=== PATIENT | male | born 1950 | race Caucasian/White ===

== ENCOUNTER 2024-05-27 15:10 | Inpatient (IN) | payer OTHER ==
[~2024-05-27] VITALS: Ht 177.8 cm; Wt 108.0 kg
[2024-05-27 15:55] LABS: BASOPHILS % (AUTO) 0.6 % (0.0-2.0); EOSINOPHILS % (AUTO) 2.4 % (1.0-6.0); HEMATOCRIT 46.1 % (41-53); HEMOGLOBIN 15.3 g/dL (13.5-17.5); LYMPHOCYTES # (AUTO) 1.3 K/uL (1.0-4.8); LYMPHOCYTES % (AUTO) 24.5 % (22.0-44.0); MEAN CORPUSCULAR HEMOGLOBIN 31.7 pg (26.0-34.0); MEAN CORPUSCULAR HGB CONC 33.3 G/dL (31.0-37.0); MEAN CORPUSCULAR VOLUME 95 fL (80-100); MONOCYTES # (AUTO) 0.5 K/uL (0.1-1.0); MONOCYTES % (AUTO) 9.9 % (2.0-9.0); NEUTROPHILS # (AUTO) 3.4 K/uL (1.8-7.7); NEUTROPHILS % (AUTO) 62.6 % (40.0-70.0); PLATELET COUNT (AUTO) 286 K/uL (150-450); RED BLOOD CELL COUNT(AUTO) 4.84 MIL/uL (4.50-5.90); RED CELL DISTRIBUTION WIDTH 14.5 % (11.5-14.5); WHITE BLOOD COUNT (AUTO) 5.4 K/uL (4.5-11.0)
[2024-05-27 16:07] LABS: ANION GAP 9 mmol/L (8-16); CALCIUM, TOTAL 9.1 mg/dL (8.8-10.5); CARBON DIOXIDE 27 mmol/L (22-29); CHLORIDE 105 mmol/L (98-107); CREATININE 1.62 mg/dL (0.60-1.30); GLOMERULAR FILTR. RATE CALC 42 mL/min (>60); GLUCOSE,RANDOM 105 mg/dL (70-110); POTASSIUM 4.2 mmol/L (3.5-5.1); SODIUM SERUM 141 mmol/L (136-145); UREA NITROGEN, BLOOD 26 mg/dL (7-18)
[2024-05-27 16:14] LABS: B-TYPE NATRIURETIC PEPTIDE 43 pg/mL (0-100)
[2024-05-27 16:16] LABS: ALANINE AMINOTRANSFERASE 31 U/L (12-78); ALBUMIN 3.5 g/dL (3.4-5.0); ALKALINE PHOSPHATASE 115 U/L (46-116); ASPARTATE AMINOTRANSFERASE 30 U/L (15-37); BILIRUBIN,TOTAL 0.8 mg/dL (0.1-1.0); CREATINE KINASE, TOTAL ONLY 167 U/L (39-308); TOTAL PROTEIN, SERUM 7.2 g/dL (6.4-8.2); TROPONIN I-HIGH SENSITIVITY 11 ng/L (<76)
[2024-05-27] MEDS ORDERED: ALBUTEROL SULFATE 2.5 MG/0.5 ML NEB SOLUTION NEB PRN (16:30)
[2024-05-27] MEDS ORDERED: ZOLPIDEM TARTRATE 5 MG TABLET PO PRN (16:30)
[2024-05-27] MEDS ORDERED: ACETAMINOPHEN 325 MG TABLET PO PRN (16:30)
[2024-05-27] MEDS: AmLODIPine BESYLATE 5 MG TABLET PO SCH (16:40)
[2024-05-27 17:32] LABS: APPEARANCE,URINE CLEAR (CLEAR); BILIRUBIN,URINE NEGATIVE (NEGATIVE); COLOR,URINE LIGHT YELLOW (YELLOW); GLUCOSE, URINE (UA) NEGATIVE (NEGATIVE); KETONES,URINE NEGATIVE (NEGATIVE); LEUKOCYTE ESTERASE ,URINE NEGATIVE (NEGATIVE); NITRATE,URINE NEGATIVE (NEGATIVE); OCCULT BLOOD,URINE NEGATIVE (NEGATIVE); PROTEIN,URINE NEGATIVE (NEGATIVE); SPECIFIC GRAVITIY, URINE 1.018 (1.003-1.030); UROBILINOGEN,URINE <=1.0 mg/dL (<=1.0)
[2024-05-27] MEDS: DOCUSATE SODIUM 100 MG CAPSULE PO SCH (21:00)
[2024-05-27] MEDS: HEPARIN SODIUM,PORCINE 5,000 UNITS/ML VIAL SQ SCH (23:57)
[2024-05-28] MEDS: FAMOTIDINE 20 MG TABLET PO SCH (08:32)
[2024-05-28 14:08] VITALS: BP 109/90; PULSE 85; RESP 18; TEMP 98.4; O2SAT 96
[2024-05-28 20:00] VITALS: BP 132/72; PULSE 69; RESP 18; TEMP 98.2; O2SAT 97
[2024-05-28] MEDS: CARVEDILOL 6.25 MG TABLET PO SCH (21:23)
[2024-05-29] VITALS: BP 116/68; PULSE 62; RESP 18; TEMP 98.1; O2SAT 95
[2024-05-29 04:00] VITALS: BP 132/58; PULSE 64; RESP 18; TEMP 98; O2SAT 95
[2024-05-29 07:53] VITALS: BP 146/86; PULSE 60; RESP 18; TEMP 97.8; O2SAT 97
[2024-05-29 07:53] LABS: BASOPHILS % (AUTO) 0.7 % (0.0-2.0); HEMATOCRIT 44.8 % (41-53); LYMPHOCYTES # (AUTO) 1.7 K/uL (1.0-4.8); LYMPHOCYTES % (AUTO) 27.2 % (22.0-44.0); MEAN CORPUSCULAR HEMOGLOBIN 31.6 pg (26.0-34.0); MEAN CORPUSCULAR HGB CONC 33.4 G/dL (31.0-37.0); MEAN CORPUSCULAR VOLUME 95 fL (80-100); MONOCYTES # (AUTO) 0.7 K/uL (0.1-1.0); MONOCYTES % (AUTO) 10.2 % (2.0-9.0); NEUTROPHILS # (AUTO) 3.7 K/uL (1.8-7.7); NEUTROPHILS % (AUTO) 57.9 % (40.0-70.0); PLATELET COUNT (AUTO) 274 K/uL (150-450); RED BLOOD CELL COUNT(AUTO) 4.74 MIL/uL (4.50-5.90); RED CELL DISTRIBUTION WIDTH 14.6 % (11.5-14.5); WHITE BLOOD COUNT (AUTO) 6.4 K/uL (4.5-11.0)
[2024-05-29 07:58] LABS: CALCIUM, TOTAL 8.8 mg/dL (8.8-10.5); CREATININE 1.5 mg/dL (0.60-1.30); POTASSIUM 3.9 mmol/L (3.5-5.1)
[2024-05-29] MEDS: LEVOFLOXACIN 750 MG TABLET PO SCH (09:29)
[2024-05-29] MEDS: HYDROCHLOROTHIAZIDE 25 MG TABLET PO SCH (09:29)
[2024-05-29] MEDS: ATORVASTATIN CALCIUM 40 MG TABLET PO SCH (09:29)
[2024-05-29] MEDS: CLOPIDOGREL BISULFATE 75 MG TABLET PO SCH (09:29)
[2024-05-29] MEDS: LISINOPRIL 20 MG TABLET PO SCH (09:30)
[2024-05-29 11:35] VITALS: BP 117/77; PULSE 63; RESP 20; TEMP 97.7; O2SAT 95
[2024-05-29] MEDS ORDERED: ASPI81TA87 PO (14:21)
[2024-05-29] MEDS ORDERED: ASPI-1450 PO (14:22)
[2024-05-29] MEDS ORDERED: ATOR40TA28 PO (14:24)
[2024-05-29] MEDS ORDERED: CARV6.25 PO (14:26)
[2024-05-29] MEDS ORDERED: AMLO-257 PO (14:26)
[2024-05-29] MEDS ORDERED: HYDR25TA2 PO (14:27)
[2024-05-29] MEDS ORDERED: CLOP75TA60 PO (14:27)
[2024-05-29] MEDS ORDERED: LEVO750T68 PO (14:28)
[2024-05-29] MEDS ORDERED: LISI-894 PO (14:29)
[2024-05-30] MEDS ORDERED: ASPIRIN 81 MG CHEWABLE TABLET PO SCH (09:00)
== END 2024-05-29 14:50 | DRG 684 ==
LOC: EMS 15:10 → EDH 16:24 → 5S 05-28 14:05
PROVIDERS: ADMIT Internal Medicine; ATTEND Internal Medicine
DX: N17.9 Acute kidney failure, unspecified (principal); J98.4 Other disorders of lung; I11.9 Hypertensive heart disease without heart failure; I25.10 Atherosclerotic heart disease of native coronary artery without angina pectoris; E78.00 Pure hypercholesterolemia, unspecified; Z95.5 Presence of coronary angioplasty implant and graft
CPT/HCPCS: 71045; 80048; 80076; 81003; 82550; 83880; 84484; 85025; 93005; 93306; 99285; G0378; J1644; 36415-L1; 36415-TC